=== PATIENT | female | born 1985 | race Caucasian/White ===

== ENCOUNTER → 2019-05-03 | Day surgery (SDC) | payer OTHER ==
[~2019-05-03] MED LIST: BUPIVACAINE 0.25% 30ML SDV INJ ONE; FENTANYL CITRATE/PF 100MCG/2 ML INJ ONE; LIDOCAINE 1% W/EPINEPHRINE 20 ML VIAL ONE; LIDOCAINE HCL 2% LOCAL INJ 5 ML SDV VIAL INJ ONE; METOCLOPRAMIDE HCL 10 MG/2ML VIAL ONE; MIDAZOLAM HCL 2 MG/2 ML VIAL ONE; ONDANSETRON HCL INJ 2MG/ML 2ML 2 MG/ML VIAL ONE; PROPOFOL IV EMULSION 10 MG/ML 20 ML VIAL ONE; SEVOFLURANE INHAL SOLN 250 ML PEN BTL ONE
[2019-05-03 11:53] LABS: BASOPHILS # (AUTO) 0.1 (0.0-0.1); EOSINOPHILS # (AUTO) 0.2 (0.0-0.4); EOSINOPHILS % 3.1 % (0.0-6.0); HEMATOCRIT 43.3 % (34.2-44.1); HEMOGLOBIN 15.1 g/dL (12.0-16.0); LYMPHOCYTES # (AUTO) 1.8 (1.0-3.2); LYMPHOCYTES % 36.6 % (18.0-39.1); MEAN CORPUSCULAR HEMOGLOBIN 30.8 pg (28-32); MEAN CORPUSCULAR HGB CONC 34.9 g/dL (31-35); MEAN CORPUSCULAR VOLUME 88.4 fL (81-99); MONOCYTES # (AUTO) 0.6 (0.2-0.8); MONOCYTES % 11.5 % (4.4-11.3); NEUTROPHILS # (AUTO) 2.3 (2.1-6.9); NEUTROPHILS % 47.6 % (38.7-80.0); PLATELET COUNT 303 x10e3/uL (140-360); RED CELL DISTRIBUTION WIDTH 12.6 % (11.7-14.4)
[2019-05-03 16:54] VITALS: BP 122/79
--- NOTE | 2019-05-04 00:02 | Operative Report ---
DATE OF PROCEDURE: 05/03/2019 SURGEON: Dayday Quintana MD PREOPERATIVE DIAGNOSIS: Desires elective sterilization. IUD in place. POSTOPERATIVE DIAGNOSIS: Desires elective sterilization. IUD in placed. TITLE OF PROCEDURE: Bilateral tubal occlusion with cautery via laparoscopy and IUD removal. ANESTHESIA: General with Dr. Lea. INDICATION FOR THE OPERATION: The patient is a 33-year-old 1, para 1 with Mirena IUD in place, who requests elective sterilization. The risks, benefits, permanence, and 1% failure rate were explained in detail to the patient. Understanding this, she chooses tubal ligation for permanent contraception. She would like the IUD removed at the time of the surgery and this will be done immediately prior to the tubal ligation. FINDINGS: There were normal uterus, tubes, and ovaries. The IUD was in place and easily removed. DESCRIPTION OF PROCEDURE: The patient was taken to the operating room and placed on the table in supine position. General anesthesia was administered. The patient was then placed in the lithotomy position. The perineum was prepared and draped in the usual sterile manner so the abdomen. The bladder was drained by in and out catheterization. A pelvic exam revealed an IUD string in place 2 cm string outside the cervix in a normal size anteverted uterus with no adnexal masses. A weighted speculum was placed in posterior vaginal wall. Then with the aid of right angle retractor, the IUD was visualized with the strings just out of the cervix. It was grasped with a ring forceps and removed and discarded. Then, a sponge stick was placed in the vagina and attached to the drapes using a long Allis clamp. At this point, the metal machine operator changed gloves and the patient was placed back in the supine position and a small incision was made just inferior to the umbilicus in the midline. The Veress needle was inserted through the incision into the peritoneal cavity. A pneumoperitoneum was created by insufflation of 4 L of carbon dioxide gas and a filling pressure of 8-10 mmHg. The Veress needle was removed, and then, the trocar was inserted through the incision into the peritoneal cavity. The laparoscoped was placed with confirmation that the peritoneal cavity being entered. A second trocar was placed through the midline suprapubic incision under direct visualization by laparoscopy. The trocar was removed and the probe was placed, and the contents of the abdomen and pelvis were visualized with normal uterus, tubes, and ovaries. There were a few adhesions of the omentum to the left pelvic sidewall and the LigaSure instrument was used to lyse these adhesions so that the left tube could be exposed and visualized. There were normal uterus, tubes, and ovaries, and at this point, attention was turned to the right tube. It was grasped in the mid ampullary portion, traced to the fimbriated end for positive identification. The mid ampullary portion of the tube was then cauterized using a LigaSure instrument. Cautery was performed in three spots and done until the ammeter indicated that there was no further resistance in the tissue. It was apparent that the tube was completely desiccated and occluded and pictures were taken and then attention was turned to the left tube. It was grasped in the mid ampullary portion, traced to the fimbriated end for positive identification. The mid ampullary portion of the tube was then occluded using the LigaSure instrument. The mid ampullary portion of the tube was occluded in three places. Using the LigaSure instrument, cautery was done until the ammeter revealed that there was no resistance in the tube and the tube was completely desiccated. At this point, it was apparent that the tube was completely occluded and the procedure was deemed terminated. Any fluid or blood that was in the cul-de-sac was irrigated and suctioned and then reinspected. No further evidence of any bleeding was noted and then all the air and instruments were removed from the abdomen. The skin incisions were closed with inverted stitches of 4-0 Monocryl suture and the vaginal instruments were removed as well, thus completing the procedure. There were no complications noted. Estimated blood loss was 15 mL. The patient tolerated the procedure well and was transferred from the operating room to the recovery room in stable condition. MD CORNELIO Cameron/LILYL /[id number]
== END | disposition home or self-care (01) ==
LOC: OR 11:06
PROVIDERS: ATTEND Obstetrics & Gynecology
DX: Z30.2 Encounter for sterilization (principal); Z30.432 Encounter for removal of intrauterine contraceptive device; Z91.040 Latex allergy status
CPT/HCPCS: 36415; 58301; 58670; 81025; 85025; J2001; J2250; J2405; J2704; J2765; J3010